=== PATIENT | female | born 1965 | race Caucasian/White ===

== ENCOUNTER → 2016-10-08 | Outpatient (CLI) | payer OTHER ==
[~2016-10-08] MED LIST: CALCTAB5 PO; JOINT SUPPLEMENT; MULT-506 PO; NAPR220T40 PO; OMEG10007 PO
--- NOTE | 2016-10-11 13:13 | MAMMOGRAPHY REPORT ---
BILATERAL DIGITAL SCREENING MAMMOGRAM TOMOSYNTHESIS WITH CAD: 10/08/2016 CLINICAL HISTORY: Routine screening. Patient has no complaints. TECHNIQUE: Breast tomosynthesis in addition to standard 2D mammography was performed. Current study was also evaluated with a Computer Aided Detection (CAD) system. COMPARISON: Comparison is made to exams dated: 10/03/2015 mammogram, 05/14/2013 mammogram, 03/15/2012 s pecimen, 03/15/2012 localization, 02/24/2012 mammogram, and 02/24/2012 ultrasound - [facility]. BREAST COMPOSITION: The tissue of both breasts is heterogeneously dense, which may obscure small mas ses. FINDINGS: There is a 14 mm asymmetry seen within the left superior breast middle depth on the MLO view only, wh ich likely represents normal overlapping fibroglandular tissue although spot compression tomosynthesi s views, true lateral view, and possible breast ultrasound are recommended for further evaluation. The remainder of both breasts are stable compared to prior exams, without suspicious masses, calcific ations, or areas of architectural distortion noted. There are stable postsurgical changes in the rig ht 12:00 breast from prior excisional biopsy, with a linear scar marker denoting a scar on the right 12:00 breast. Again noted are fluctuating bilateral benign-appearing masses, which likely represent cysts, with multiple cysts seen on prior ultrasound exams. Scattered bilateral benign-appearing calc ifications are not significantly changed. IMPRESSION: ACR BI-RADS CATEGORY 0: INCOMPLETE EVALUATION: NEED ADDITIONAL IMAGING EVALUATION Left superior breast asymmetry, for which additional imaging evaluation is recommended. The patient will be called to schedule an appointment. Approximately 10% of breast cancers are not detected with mammography. A negative mammographic report should not delay biopsy if a clinically suggestive mass is present. Karma Medina M.D. /:10/09/2016 10:13:43 Stage Settings Painter: Andria CURRY(Toma)(M), [facility] letter sent: Addl Imaging 0 BI-RADS Code: ACR BI-RADS Category 0: Incomplete Evaluation: Need Additional Imaging Evaluation
== END | disposition home or self-care (01) ==
LOC: C.MAMM 15:35
PROVIDERS: ATTEND Obstetrics & Gynecology
DX: Z12.31 Encounter for screening mammogram for malignant neoplasm of breast (principal); N64.89 Other specified disorders of breast

== ENCOUNTER → 2016-10-22 | Outpatient (CLI) | payer OTHER | END | disposition home or self-care (01) | LOC: C.PAPS 09:51 | PROVIDERS: ATTEND Obstetrics & Gynecology | DX: Z12.4 Encounter for screening for malignant neoplasm of cervix (principal) ==

== ENCOUNTER → 2016-10-25 | Outpatient (CLI) | payer OTHER ==
--- NOTE | 2016-10-25 13:17 | MAMMOGRAPHY REPORT ---
UNILATERAL LEFT DIGITAL DIAGNOSTIC MAMMOGRAM TOMOSYNTHESIS AND TARGETED LEFT ULTRASOUND: 10/25/2016 CLINICAL HISTORY: 51-year-old woman called back from screening mammography for an asymmetry in the gurrola perior middle one third of the left breast on the MLO view. Family history of breast cancer = mother . TECHNIQUE: Spot compression left MLO and ML 2-D digital and tomosynthesis images were obtained. COMPARISON: Comparison is made to exams dated: 10/08/2016 mammogram, 10/03/2015 mammogram, 03/15/2012 lo calization, 02/24/2012 mammogram, and 02/24/2012 ultrasound - [facility]. BREAST COMPOSITION: The tissue of the left breast is heterogeneously dense, which may obscure small masses. FINDINGS: There are punctate benign-appearing microcalcifications at the superior left breast. With the supplemental spot compression views there is persistence of a 15 x 9 mm asymmetry in the superior middle one third of the breast. There is possible associated architectural distortion seen on tomos ynthesis slice 13 no associated clustered microcalcification. Further evaluation with ultrasound was performed. There are other circumscribed masses superior to the asymmetry in question. In particular, the domin ant circumscribed mass in the left superior breast, upper outer quadrant, measures 2.4 cm. Targeted ultrasound was performed throughout the superior left breast. Several anechoic benign simpl e cysts are identified. In particular in the 12:00 left breast, 2 cm from the nipple, there is a lob ulated anechoic cyst with posterior acoustic enhancement, measuring 16.6 x 10.0 x 13.2 mm. Another a nechoic benign simple cyst is identified in the 12:30 left breast measuring 10.3 x 8.7 x 9.5 mm. The largest anechoic benign simple cyst is seen in the 1:00 axis, 3 cm from the nipple, measuring 26.7 x 11.8 x 24.6 mm. This likely correlates with the dominant circumscribed mammographic mass. Another rounded anechoic simple cyst is seen in the 2:00 left breast, 2 cm from the nipple, measuring 7.8 x 6 .7 x 9.4 mm. A few other smaller anechoic benign simple cysts are seen. No definite area of archite ctural distortion or suspicious solid mass is seen on ultrasound. IMPRESSION: ACR BI-RADS CATEGORY 0: INCOMPLETE EVALUATION: NEED ADDITIONAL IMAGING EVALUATION, TARG ETED ULTRASOUND ACR BI-RADS CATEGORY 0: INCOMPLETE EVALUATION: NEED ADDITIONAL IMAGING EVALUATION There is persistence of a 9 x 15 mm asymmetry with possible associated architectural distortion in th e superior middle one third of the left breast. However, no sonographic correlate was identified. W hen comparing back to all available prior mammograms, this asymmetry appears somewhat similar to the 2008 exam suggesting it could represent normal glandular tissue and the suggested distortion may repr esent Flaquito's ligaments. However, given the strong family history of breast cancer, multiple masses and dense breasts, recommend contrast-enhanced bilateral breast MRI for definitive characterization, and to exclude the possibility of a suspicious enhancing mass in this location. These results and recommendations were discussed with the patient at the time of the exam. Approximately 10% of breast cancers are not detected with mammography. A negative mammographic report should not delay biopsy if a clinically suggestive mass is present. Radha Bashir M.D. ay/:10/25/2016 12:19:17 Bindery Technician: Aline CURRY(Toma)(Kim), [facility] letter sent: Addl Imaging 0 BI-RADS Code: ACR BI-RADS Category 0: Incomplete Evaluation: Need Additional Imaging Evaluation Ult rasound BI-RADS: ACR BI-RADS Category 0: Incomplete Evaluation: Need Additional Imaging Evaluation
== END | disposition home or self-care (01) ==
LOC: C.MAMM 09:11
PROVIDERS: ATTEND Obstetrics & Gynecology
DX: N64.89 Other specified disorders of breast (principal)

== ENCOUNTER → 2016-11-10 | Outpatient (CLI) | payer OTHER ==
[~2016-11-10] MED LIST changes: +GADAVIST IV PRN
--- NOTE | 2016-11-11 15:22 | MAMMOGRAPHY REPORT ---
BREAST MRI OF BOTH BREASTS : 11/10/2016 CLINICAL HISTORY: Persistent asymmetry with questionable associated architectural distortion within t he left superior breast on recent diagnostic mammograms. Family history of breast cancer. History o f prior right breast surgical excision. COMPARISON: Comparison is made to exams dated: 10/08/2016 mammogram, 10/03/2015 mammogram, 05/14/2013 vonda mogram, 10/25/2016 mammogram, and 10/25/2016 ultrasound - [facility]. Technique: The patient was placed prone in a dedicated breast imaging coil. Precontrast axial T1-renetta ghted, axial T2-weighted fat saturation, and axial T1-weighted fat saturation images were obtained. After the administration of 5.5 mL of Gadavist IV contrast, sequential T1-weighted fat saturation salvador ges were obtained. Subtraction images were obtained of the dynamic contrast enhanced sequences, and 3-D reformations were performed. The NOZA software was used for kinetic analysis. Findings: There is moderate background parenchymal enhancement involving bilateral breasts. There are multiple T2 hyperintense circumscribed masses seen throughout both breasts, consistent with cysts. Many of t he cysts demonstrate rim enhancement, consistent with inflamed cysts. There are no suspicious enhanc ing masses or areas of abnormal non-mass enhancement within either breast. Specifically, there is no suspicious enhancement in the left superior breast in the region of the mammographic asymmetry. Kristen ceptibility artifact is seen within the right superior breast from prior surgical excision. There is no evidence of axillary adenopathy. The chest wall structures are negative. Extramammary s oft tissues are unremarkable. IMPRESSION: ACR BI-RADS CATEGORY 2: BENIGN No MRI evidence of malignancy in either breast. No suspicious MRI abnormality in the left superior b reast in the region of the mammographic asymmetry described on the recent diagnostic mammogram report . Given the lack of corresponding MRI abnormality and given that the asymmetry appears similar on th e additional mammographic views to prior exams, the finding is benign and compatible with normal fibr oglandular tissue. Return to annual mammogram screening schedule is recommended. Karma Medina M.D. /:11/10/2016 16:08:27 Principal Quality Engineer: rubber compounder formulator, [facility] BI-RADS Code: ACR BI-RADS Category 2: Benign
== END | disposition home or self-care (01) ==
LOC: C.MRI 10:58
PROVIDERS: ATTEND Obstetrics & Gynecology
DX: N64.89 Other specified disorders of breast (principal); R92.8 Other abnormal and inconclusive findings on diagnostic imaging of breast; Z80.3 Family history of malignant neoplasm of breast